=== PATIENT | male | born 1975 | race Caucasian/White ===

== ENCOUNTER 2018-02-24 03:32 | Emergency (ER) | payer MEDICAID, MEDICARE ==
[~2018-02-24] VITALS: Ht 172.7 cm; Wt 65.0 kg
[2018-02-24] MEDS ORDERED: BECL10.62 INH (03:49)
[2018-02-24 03:59] LABS: BASOPHILS # (AUTO) 0.09 x10^3/uL (0-0.1); BASOPHILS % (AUTO) 1 % (0-1); EOSINOPHILS % (AUTO) 3 % (1-7); LYMPHOCYTES # (AUTO) 2.53 x10^3/uL (1-3.4); LYMPHOCYTES % (AUTO) 29 % (22-44); MD NO; MEAN CORPUSCULAR HEMOGLOBIN 26.7 pg (27.5-34.5); MEAN CORPUSCULAR HGB CONC 33.5 g/dL (33.2-36.2); MEAN CORPUSCULAR VOLUME 79.7 fL (81-97); MEAN PLATELET VOLUME 6.8 fL (7.4-10.4); MONOCYTES # (AUTO) 0.96 x10^3/uL (0.2-0.8); MONOCYTES % (AUTO) 11 % (2-9); NEUTROPHILS # (AUTO) 4.87 x10^3/uL (1.8-6.8); NEUTROPHILS % (AUTO) 56 % (42-75); PLATELET COUNT 364 x10^3/uL (130-400); RED CELL DISTRIBUTION WIDTH 17.2 % (9.4-14.8)
[2018-02-24 04:11] LABS: ALANINE AMINOTRANSFERASE 20 U/L (12-78); ALBUMIN 3.2 g/dL (3.4-5.0); ANION GAP 6 mmol/L (5-15); CALCIUM 8.9 mg/dL (8.5-10.1); CHLORIDE 102 mmol/L (98-107)
[2018-02-24 04:16] LABS: ALKALINE PHOSPHATASE 114 U/L (45-117); BILIRUBIN,TOTAL 0.4 mg/dL (0.2-1.0); CREATININE 0.76 mg/dL (0.7-1.3); TOTAL PROTEIN 7.5 g/dL (6.4-8.2); TROPONIN I < 0.015 ng/mL (0.000-0.045)
--- NOTE | 2018-02-24 04:17 | NUR ---
PT HERE FOR SOB AND COUGH. 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 PT LEFT O2 IN BAY AREA. PT IS 86% ON RA AND IS 95 ON 2L. VSS. PT SROWSY BUT AAOX4. PT HAS PRODUCTIVE COUGH AND IS SR ON MONITOR. CALL LIGHT IN REACH
[2018-02-24] MEDS ORDERED: ALBU8.5H8 INH (04:31)
--- NOTE | 2018-02-24 05:00 | NUR ---
PT SLEEPING. VSS. PT SATING WELL ON 2 L O2. PT IN NAD. CALL LIGHT IN REACH
--- NOTE | 2018-02-24 05:24 | NUR ---
PT SATING 84% ON RA. PT PLACED ON 3L O2 PER N/C. WILL CONTINUE TO MONITOR.
[2018-02-24] MEDS ORDERED: NALOXONE 0.4 MG/ML, 1ML IM ONE (06:00)
[2018-02-24] MEDS ORDERED: NALOXONE 1 MG/ML, 2ML ONE (06:13)
--- NOTE | 2018-02-24 06:15 | NUR ---
PT LETHARGIC AND DIFFICULT TO AROUSE. ERP ORDERED NARCAN. WENT TO ADMIN TO PT, PT REFUSED NARCAN, STATED HE DOES NOT NEED THAT HE IS A [employer] PT. ASKED PT IF HE COULD AMBULATE. PT ABLE TO AMBULATE STEADILY IN HALLWAY ON HIS OWN, PT SATING 87% ON RA AFTER WALKING. PT IS A&OX4, IS NOT FULLY AWARE AFTER AMBULATING.
[2018-02-24 07:05] VITALS: BP 110/74
--- NOTE | 2018-02-24 07:05 | NUR ---
PT ABLE TO DRESS HIMSELF
== END 2018-02-24 07:19 | disposition home or self-care (01) ==
LOC: ED 07:15
DX: R06.00 Dyspnea, unspecified (principal); J44.9 Chronic obstructive pulmonary disease, unspecified; Z99.81 Dependence on supplemental oxygen; Z21 Asymptomatic human immunodeficiency virus [HIV] infection status
CPT/HCPCS: 36415; 71045; 80053; 80307; 84484; 85025; 93005; 99284